=== PATIENT | female | born 1970 | race Caucasian/White ===

== ENCOUNTER 2018-05-11 04:47 | Emergency (ER) | payer SELFPAY, OTHER ==
[2018-05-11] MEDS: LORAZEPAM 0.5 MG TAB PO (05:15)
== END 2018-05-11 05:41 | disposition home or self-care (01) ==
LOC: FTE 04:47
DX: F41.9 Anxiety disorder, unspecified (principal); R40.2412 Glasgow coma scale score 13-15, at arrival to emergency department
CPT/HCPCS: 99283